=== PATIENT | female | born 1985 | race Caucasian/White ===

== ENCOUNTER 2016-04-14 14:45 | Outpatient (CLI) | payer OTHER ==
[~2016-04-14] VITALS: Ht 162.6 cm; Wt 75.0 kg
[2016-04-14 14:54] VITALS: BP 117/56
== END 2016-04-14 16:00 | disposition home or self-care (01) ==
LOC: M LDO 14:45
PROVIDERS: ATTEND Obstetrics & Gynecology
DX: Z34.83 Encounter for supervision of other normal pregnancy, third trimester (principal); Z3A.41 41 weeks gestation of pregnancy

== ENCOUNTER 2016-04-15 22:14 | Inpatient (IN) | payer OTHER ==
[~2016-04-15] VITALS: Ht 162.6 cm; Wt 75.0 kg
[2016-04-15 22:22] VITALS: BP 133/68
[2016-04-15 23:21] LABS: MEAN CORPUSCULAR HEMOGLOBIN 32.5 pg (27.0-33.0); MEAN CORPUSCULAR VOLUME 87.8 fl (80.0-96.0); WHITE BLOOD COUNT 8.7 K/mm3 (4.0-10.0)
[2016-04-15] MEDS: miSOPROStol 50 MCG 1/2 TAB (S0191) PO SCH (23:52)
[2016-04-16] VITALS (36 sets, daily range): BP systolic 99–140; BP diastolic 47–72
[2016-04-16] MEDS: miSOPROStol 50 MCG 1/2 TAB (S0191) PO SCH ×2 (03:54→08:20)
[2016-04-16] MEDS: LR 1,000 ML IV SCH ×3 (04:45→16:21)
--- NOTE | 2016-04-16 08:43 | IPNPDOC ---
Text Note Date of Service The patient was seen on 04/16/16 at 08:40. NOTE SBAR from Dr Corbin at 0730, accepted care FHT Cat 1, has had 2 doses PO cytotec, due for third dose at ~0800. After tracing review wth the RN, given the third dose. FT Cat 1 and >5 min inbetween ctx's. Plan on recheck after noon today, sooner prn. Sessions VS,Jannet, I+O VSJannet I+O Laboratory Tests 04/15/16 23:09 Red Blood Count 3.85 L, Mean Corpuscular Volume 87.8, Mean Corpuscular Hemoglobin 32.5, Mean Corpuscular Hemoglobin Concent 37.0 H, Red Cell Distribution Width 13.0 Vital Signs Date Time Temp Pulse Resp B/P Pulse Ox O2 Delivery O2 Flow Rate FiO2 04/15/16 22:33 98.0 04/15/16 22:22 63 133/68 SESSIONS,JOANNE Pineda MD Apr 16, 2016 08:42
[2016-04-16] MEDS ORDERED: LR 1,000 ML IV SCH (11:53)
--- NOTE | 2016-04-16 11:53 | IPNPDOC ---
Text Note Date of Service The patient was seen on 04/16/16 at 11:51. NOTE FHT Cat 1. Now back from walking, cytotec dose 4 hrs ago. Cx is 2-3/80/-3 after cervical stretch after FB failure. Tried to place a FB, but the vtx is well applied to the cx and I could not get the FB inbetween the cx and the head and she also did not tolerate the attempt very well. Will let her have lunch and then start pitocin at 1300. Sessions VS,Jannet, I+O VSJannet I+O Laboratory Tests 04/15/16 23:09 Red Blood Count 3.85 L, Mean Corpuscular Volume 87.8, Mean Corpuscular Hemoglobin 32.5, Mean Corpuscular Hemoglobin Concent 37.0 H, Red Cell Distribution Width 13.0 Vital Signs Date Time Temp Pulse Resp B/P Pulse Ox O2 Delivery O2 Flow Rate FiO2 04/16/16 10:43 97.7 46 16 106/53 SESSIONS,JOANNE Pineda MD Apr 16, 2016 11:53
[2016-04-16] MEDS ORDERED: OXYTOCIN DRIP 30 UNITS in APPROPRIATE DILUENT 1 EA IV SCH (12:00)
--- NOTE | 2016-04-16 19:12 | IPNPDOC ---
Text Note Date of Service The patient was seen on 04/16/16 at 19:03. NOTE Pitocin now on board for >4 hrs. Pit at 12 mu/min. A few hrs ago had a few late decels that responded to position change to her Right. Reg ctx's, however not extremely painful yet. Cx w/o signif change, however stretched to 3-4/80/- 2. VTX well applied, not ballotable. Iola some tissue give way with the Cx stretch (h/o LEEP) so hopefully that will help with her eventual dilation. Recheck in 2-3 hrs, sooner prn. If not significantly changed by then will likely do controlled AROM. Sessions VS,Jannet, I+O VS, Jannet I+O Laboratory Tests 04/15/16 23:09 Red Blood Count 3.85 L, Mean Corpuscular Volume 87.8, Mean Corpuscular Hemoglobin 32.5, Mean Corpuscular Hemoglobin Concent 37.0 H, Red Cell Distribution Width 13.0 Vital Signs Date Time Temp Pulse Resp B/P Pulse Ox O2 Delivery O2 Flow Rate FiO2 04/16/16 18:13 60 18 109/55 04/16/16 14:42 97.9 SESSIONS,JOANNE Pineda MD Apr 16, 2016 19:12
--- NOTE | 2016-04-16 22:21 | IPNPDOC ---
Text Note Date of Service The patient was seen on 04/16/16 at 22:19. NOTE Pt now finally hurting and getting the "shakes" with ctx's. on 14 mu/min pitocin, Cat 1 NST with mod michael and pos accels. Cx /-2, progress noted. Desires epidural. Will plan on likely AROM with next check after epidural. Sessions VS,Jannet, I+O VSJannet I+O Laboratory Tests 04/15/16 23:09 Red Blood Count 3.85 L, Mean Corpuscular Volume 87.8, Mean Corpuscular Hemoglobin 32.5, Mean Corpuscular Hemoglobin Concent 37.0 H, Red Cell Distribution Width 13.0 Vital Signs Date Time Temp Pulse Resp B/P Pulse Ox O2 Delivery O2 Flow Rate FiO2 04/16/16 19:17 64 18 106/55 04/16/16 18:42 98.0 SESSIONS,JOANNE Pineda MD Apr 16, 2016 22:21
[2016-04-16] MEDS ORDERED: FENTANYL 2MCG/ML ROPIVACAINE 0.2% NACL 250 ML CADD As Ordered ONE (22:42)
[2016-04-17] VITALS (48 sets, daily range): BP systolic 93–136; BP diastolic 49–78
--- NOTE | 2016-04-17 00:36 | IPNPDOC ---
Text Note Date of Service The patient was seen on 04/17/16 at 00:34. NOTE NST Cat 2 post epidural, a few non repetitive late decels and some variables present but mod michael persists and accels as well. Cx 5/80/-1/AROM clr fluid, cx stretched and some further scar tissue gave way similar to last check. Recheck in ~2 hrs, sooner prn. Sessions VS,Jannet, I+O VSJannet I+O Vital Signs Date Time Temp Pulse Resp B/P Pulse Ox O2 Delivery O2 Flow Rate FiO2 04/16/16 23:44 60 117/56 04/16/16 23:41 97.5 18 94 I&O- Last 24 Hours up to 6 AM 04/17/16 06:00 Intake Total 3670 ml Output Total 300 ml Balance 3370 ml SESSIONS,JOANNE Pineda MD Apr 17, 2016 00:36
--- NOTE | 2016-04-17 03:26 | IPNPDOC ---
Text Note Date of Service The patient was seen on 04/17/16 at 03:24. NOTE NST Cat 2 with rare late decel (isolated) but mod michael and pos accels as well. Some early's. Cx . Slow but steady progress. If no progress next check then IUPC. D/W RN and pt. Pit currently at 16 mu/min. VS,Fishbone, I+O VS, Fishbone, I+O Vital Signs Date Time Temp Pulse Resp B/P Pulse Ox O2 Delivery O2 Flow Rate FiO2 04/16/16 23:44 60 117/56 04/16/16 23:41 97.5 18 94 I&O- Last 24 Hours up to 6 AM 04/17/16 06:00 Intake Total 3670 ml Output Total 300 ml Balance 3370 ml JOE,JOANNE Pineda MD Apr 17, 2016 03:26
--- NOTE | 2016-04-17 06:18 | IPNPDOC ---
Text Note Date of Service The patient was seen on 04/17/16 at 06:17. NOTE NST mostly Cat 1, mod michael no decels. Cx C/AL/+2. Plan to recheck in 1 hr, sooner prn, will likely start pushing. Sessions VS,Jannet, I+O VSJannet, I+O Vital Signs Date Time Temp Pulse Resp B/P Pulse Ox O2 Delivery O2 Flow Rate FiO2 04/17/16 04:40 69 102/51 04/17/16 04:11 98.5 18 04/17/16 02:00 100 I&O- Last 24 Hours up to 6 AM 04/17/16 06:00 Intake Total 3670 ml Output Total 300 ml Balance 3370 ml SESSIONS,JOANNE Pineda MD Apr 17, 2016 06:18
[2016-04-17] MEDS ORDERED: EPIDURAL/PCA KEYS XX PRN (07:30)
[2016-04-17] MEDS ORDERED: diphenhydrAMINE INJ 50MG/ML VIAL (J1200) IV PRN (07:30)
[2016-04-17] MEDS ORDERED: NALOXONE INJ 0.4 MG/1 ML VIAL (J2310) IV PRN (07:30)
[2016-04-17] MEDS ORDERED: ONDANSETRON 4MG/2ML VIAL (J2405) IV PRN (07:30)
[2016-04-17] MEDS ORDERED: ePHEDrine SULFATE 25 MG/5 ML(5MG/ML) SYRINGE IV PRN (07:30)
[2016-04-17] MEDS ORDERED: LACTATED RINGER'S 1000 ML IV PRN (07:30)
[2016-04-17] MEDS ORDERED: EPIDURAL COMMENT XX SCH (07:30)
[2016-04-17] MEDS ORDERED: REFRIGERATOR IV KEYS XX PRN (07:30)
[2016-04-17] MEDS ORDERED: FENTANYL/ROPIVACAINE/NACL CADD 250 ML EPIDURAL SCH (07:30)
[2016-04-17] MEDS: PRENATAL VITAMIN TAB PO SCH (09:00)
[2016-04-17 10:19] LABS: CORD GAS ABE V -3.8; CORD GAS HCO3 V 20.9 MEQ/L; CORD GAS O2 SAT V 62.4 %; CORD GAS PCO2 V 37.2 mmHg; CORD GAS PH V 7.367 UNITS; CORD GAS PO2 V 24.7 mmHg; CORD GAS SBC V 20.5 MEQ/L
[2016-04-17 10:21] LABS: CORD GAS ABE A -4.3; CORD GAS HCO3 A 21.2 MEQ/L; CORD GAS O2 SAT A 63.8 %; CORD GAS PCO2 A 40.4 mmHg; CORD GAS PH A 7.337 UNITS; CORD GAS PO2 A 27.4 mmHg; CORD GAS SBC A 20.1 MEQ/L; CORD GAS TCO2 A 22.4 MEQ/L
[2016-04-17] MEDS ORDERED: METHYLERGONOVINE MALEATE 0.2 MG TAB PO PRN (10:30)
[2016-04-17] MEDS ORDERED: MOM 30ML SUSPENSION UDC PO PRN (10:30)
[2016-04-17] MEDS ORDERED: DIBUCAINE 1% OINTMENT 30GM TOP PRN (10:30)
[2016-04-17] MEDS ORDERED: ANUSOL HC CREAM 30GM TOP PRN (10:30)
[2016-04-17] MEDS ORDERED: DOCUSATE SODIUM 100 MG CAP PO PRN (10:30)
[2016-04-17] MEDS ORDERED: RHOGAM 300 MCG (1500 IU) INJ (J2790) IM SCH (10:30)
[2016-04-17] MEDS ORDERED: ACETAMINOPHEN 500 MG TAB PO PRN (10:30)
[2016-04-17] MEDS ORDERED: MEASLES,MUMPS,RUBELLA VACCINE INJ (MMR-II) (90707) SC SCH (10:30)
--- NOTE | 2016-04-17 10:55 | DN ---
DATE OF : 04/17/2016 This lady is a 30-year-old 3, now para 1 who was admitted with spontaneous rupture of membranes at 41 and 1 weeks' of gestation. She was augmented with Cytotec, Pitocin. Has had more than a 48-hour induction window. At the present time, the baby was asynclitic off to the right transverse with an atonic uterus despite the use of 20 milliunits of Pitocin. She had very mild intermittent contractions. She was able to get the baby down to -1 station, but because of the ineffectiveness of the uterine contractions on Pitocin, we discussed the use of a low vacuum to bring the baby down to the perineum after which spontaneous delivery of the fetus could be entertained. After discussing the risks and benefits of vacuum including cephalohematoma, NICU admission, anemia, scalp laceration, both and the patient expressed understanding and therefore we replaced the Murrell catheter. We had neonatology available and the vacuum was applied in the appropriate position, with a contraction was brought up to the green line of the 55 mmHg and with two pulls, brought it under the symphysis pubis onto the perineal floor after which the patient had her own urge to push and we took off the vacuum and she had a spontaneous vaginal delivery of a live female infant weighing 7 pounds 5 ounces, 3314 grams. of 8 and 9 at one and five minutes respectively. Terminal meconium was noted at time of delivery. The cutlet maker pork was present at the delivery. Arterial and venous pH were performed. The placenta delivered spontaneously thereafter. We examined the placenta, three-vessels, membranes and tissues were intact. We examined the cervix and the vagina. The patient sustained a small first-degree tear which was oversewn with the [id number] #[id number] Vicryl. The uterus was contracted down under vigorous massage. IV Pitocin and a bag of 30 units running at 125 cc/hour. Hemabate, Methergine and Cytotec were available as needed. The uterus contracted well down. Approximate blood loss about 250 mL. Baby and mother tolerated the procedure well. MTDD
[2016-04-17] MEDS ORDERED: OXYTOCIN INJ 10 UNITS/ML VIAL (J2590) As Ordered ONE (11:45)
[2016-04-17] MEDS ORDERED: OXYTOCIN INJ 10 UNITS/ML VIAL (J2590) IV ONE (11:45)
[2016-04-17] MEDS: IBUPROFEN 800 MG TAB PO PRN ×2 (15:29→23:22)
[2016-04-18 06:58] LABS: MEAN CORPUSCULAR HGB CONC 33.6 g/dl (32.0-36.5); MEAN CORPUSCULAR VOLUME 92.4 fl (80.0-96.0)
[2016-04-18] MEDS: PRENATAL VITAMIN TAB PO SCH (09:05)
[2016-04-18] MEDS: IBUPROFEN 800 MG TAB PO PRN ×2 (09:05→18:24)
--- NOTE | 2016-04-18 11:09 | IPN ---
DATE: 04/18/2016 This lady is a 30-year-old 3, now para 1, had a spontaneous vaginal delivery with low vacuum a live female infant 7 pounds 5 ounces, 3314 grams. of 8 and 9 at 1 and 5 minutes respectively. Arterial pH 7.33, base excess -4.3, venous pH 7.36, base excess -3.8. Her admitting hemoglobin was 12.5, hematocrit 33.8, platelets are 258. Her day #1 hemoglobin 10.9, hematocrit 32.5, platelets are 218. We discussed phlebitis, cystitis, mastitis, metritis, cellulitis, diet, exercise, pain management, perineal breast and wound care. The patient has risk factors of anxiety, depression, had a LEEP and had a first-degree repair. She also requests to have a ParaGard at her 6-week checkup and she is anxious for discharge tomorrow morning. SUMMARY: In summary we have a term gestation delivered a live female for discharge tomorrow.
[2016-04-18 18:07] VITALS: BP 140/67
[2016-04-18 23:28] VITALS: BP 118/55
[2016-04-19] MEDS: PRENATAL VITAMIN TAB PO SCH (08:46)
[2016-04-19] MEDS: IBUPROFEN 800 MG TAB PO PRN (08:46)
--- NOTE | 2016-04-19 09:50 | IPNPDOC ---
Text Note Date of Service The patient was seen on 04/19/16 at 09:48. NOTE Dain is a 30yo doing well on PPD 2 s/p uncomplicated [id number] . She is . Lochia normal, spontaneously voiding and ambulating without difficulty. Tolerating regular diet. Denies f/c/n/v/SOB/CP/MURRIETA/abdominal pain. Vitals wnl, afebrile Exam: General: WDWN, NAD, resting comfortably Cardiac: S1S2 present, no murmur Lungs: CTAB without wheeze/crackles Abdomen: soft, NTTP, fundus firm u-2cm Extremities: no tenderness of calves bilaterally Assessment: Dain is a 30yo doing well on PPD 2 s/p uncomplicated low -[id number]. Meeting all milestones. No e/o infection, hemodynamically stable. Plan: -discharge to home with routine follow-up for 6wk PP visit -home meds already given from clinic stock -desires copper IUD for contraception Dr. Amy Lovell MD PanoraJannet Fernandez, I+O Jannet ANDRADE I+O Vital Signs Date Time Temp Pulse Resp B/P Pulse Ox O2 Delivery O2 Flow Rate FiO2 04/18/16 23:28 96.9 53 18 118/55 98 Room Air AMY LOVELL MD Apr 19, 2016 09:50
[2016-04-19] MEDS ORDERED: STUACAP PO (12:54)
[2016-04-19] MEDS ORDERED: TYLE500T78 PO (12:55)
[2016-04-19] MEDS ORDERED: COLA100C PO (12:56)
[2016-04-19] MEDS ORDERED: MOTR200T44 PO (12:56)
[2016-04-19] MEDS ORDERED: DIBU1OI TOP (13:03)
== END 2016-04-19 13:30 | disposition home or self-care (01) | DRG 775 ==
LOC: M LDO 22:14 → M LDI 22:48 → M OBS 04-17 13:24
PROVIDERS: ADMIT Obstetrics & Gynecology; ATTEND Obstetrics & Gynecology
PROC: 3E0DXGC Introduction of Other Therapeutic Substance into Mouth and Pharynx, External Approach (ICD-10-PCS; 2016-04-15)
PROC: 10D07Z6 Extraction of Products of Conception, Vacuum, Via Natural or Artificial Opening (ICD-10-PCS; principal; 2016-04-17)
PROC: 0HQ9XZZ Repair Perineum Skin, External Approach (ICD-10-PCS; 2016-04-17)
DX: O48.0 Post-term pregnancy (principal); O41.03X0 Oligohydramnios, third trimester, not applicable or unspecified; Z37.0 Single live birth; Z3A.41 41 weeks gestation of pregnancy; O70.0 First degree perineal laceration during delivery; O77.0 Labor and delivery complicated by meconium in amniotic fluid